=== PATIENT | female | born 1990 | race Two or more races ===

== ENCOUNTER 2019-03-21 06:05 | Day surgery (SDC) | payer BC ==
[~2019-03-21 06:05] MED LIST: BIOT1SUB SL; ETON1IMP SC; PREN-96 PO
[2019-03-21] MEDS ORDERED: ceFAZolin 1GM/50ML 50 ML IV ONE (07:19)
[2019-03-21] MEDS ORDERED: BUPIVACAINE 0.25% INJ 50ML VIAL ONE (07:32)
[2019-03-21] MEDS ORDERED: METHYLENE BLUE 0.5% 5MG/ML 10ml AMP IV ONE (07:32)
[2019-03-21] MEDS ORDERED: LIDOCAINE 1% HCL (LOCAL ANESTH.) INJ 20ML MDV ONE (07:32)
[2019-03-21] MEDS ORDERED: HYDROmorphone HCL 2 MG/ML VL ONE (07:39)
[2019-03-21] MEDS ORDERED: fentaNYL CITRATE 100 MCG/2 ML VL ONE ×2 (07:39→08:22)
[2019-03-21] MEDS ORDERED: MIDAZOLAM HCL 1MG/1ML-2 ML VIAL ONE (07:40)
[2019-03-21] MEDS ORDERED: DexAMETHasone SOD PHOS 10MG/1ML VIAL INJ ONE (07:59)
[2019-03-21] MEDS ORDERED: PROPOFOL 10 MG/ML 20 ML IV ONE (07:59)
[2019-03-21] MEDS ORDERED: LABETALOL HCL 5 MG/ML 4ML SYRINGE IV PRN (08:30)
[2019-03-21] MEDS ORDERED: MORPHINE SULFATE 4 MG/ML SYR/VIAL IV PRN (08:30)
[2019-03-21] MEDS ORDERED: ONDANSETRON HCL 4 MG/2 ML VIAL IV PRN (08:30)
[2019-03-21] MEDS ORDERED: KETOROLAC TROMETH 30 MG/ML 1ML VIAL IV ONE (08:30)
[2019-03-21] MEDS ORDERED: ePHEDrine SULFATE 50 MG/ML AMP IV PRN (08:30)
[2019-03-21] MEDS ORDERED: HYDROmorphone HCL 2 MG/ML VL IV PRN (08:30)
[2019-03-21] MEDS ORDERED: MIDAZOLAM HCL 1MG/1ML-2 ML VIAL IV PRN (08:30)
[2019-03-21] MEDS ORDERED: GLYCOPYRROLATE 0.2 MG/ML 1ML VIAL ONE (08:40)
[2019-03-21] MEDS ORDERED: KETOROLAC TROMETH 30 MG/ML 1ML VIAL ONE (08:40)
[2019-03-21] MEDS ORDERED: NEOSTIGMINE 1 MG/ML INJ (10mg/10ML VIAL) ONE (08:40)
[2019-03-21 09:42] VITALS: BP 120/75
== END 2019-03-21 09:44 | disposition home or self-care (01) ==
LOC: SUR 06:05
PROVIDERS: ATTEND Obstetrics & Gynecology
DX: N83.291 Other ovarian cyst, right side (principal); E66.9 Obesity, unspecified; Z91.040 Latex allergy status; Z79.899 Other long term (current) drug therapy; Z68.35 Body mass index [BMI] 35.0-35.9, adult
CPT/HCPCS: 58662; 88304; J0690; J1100; J1170; J1885; J2001; J2250; J2704; J3010; J3490; J7030; S2900